=== PATIENT | female | born 1985 | race Caucasian/White ===

== ENCOUNTER 2016-12-09 09:02 | Emergency (ER) | payer OTHER ==
[~2016-12-09] VITALS: Ht 157.5 cm; Wt 127.0 kg
[~2016-12-09 09:02] MED LIST: AMOX250C4 PO; CLAR250T3 PO; OMEP20 PO; [UNRECOGNIZED DRUG - REMARK]
[2016-12-09] MEDS ORDERED: OxyCODONE HCL/ACETAMINOPHEN 5-325 MG TABLET PO ONE (10:45)
[2016-12-09] MEDS ORDERED: KETOROLAC TROMETHAMINE 60 MG/2 ML VIAL IM ONE (11:00)
[2016-12-09 11:49] VITALS: BP 119/71
== END 2016-12-09 11:53 | disposition home or self-care (01) ==
LOC: EMS 09:09
DX: H57.11 Ocular pain, right eye (principal)
CPT/HCPCS: 96372; 99283; J1885

== ENCOUNTER 2017-11-27 19:10 | Emergency (ER) | payer OTHER ==
[~2017-11-27] VITALS: Ht 157.5 cm; Wt 61.4 kg
[2017-11-27] MEDS ORDERED: SODIUM CHLORIDE 0.9% 1,000 ML IV ONE ×2 (20:24)
[2017-11-27] MEDS ORDERED: DiphenhydrAMINE HCL 50 MG/ML VIAL IVP ONE (20:30)
[2017-11-27] MEDS ORDERED: METOCLOPRAMIDE HCL 5 MG/ML 2 ML VIAL IVP ONE (20:45)
[2017-11-27] MEDS ORDERED: KETOROLAC TROMETHAMINE 30 MG/ML VIAL IVP ONE (20:45)
[2017-11-27 22:48] VITALS: BP 109/62
== END 2017-11-27 23:02 | disposition home or self-care (01) ==
LOC: EMS 19:12
DX: H66.91 Otitis media, unspecified, right ear (principal); J02.9 Acute pharyngitis, unspecified; R11.2 Nausea with vomiting, unspecified; R51 Headache; R42 Dizziness and giddiness
CPT/HCPCS: 70450; 81025; 96361; 96374; 96375; 99285; J1200; J1885; J2765; J7030